=== PATIENT | female | born 1960 | race Caucasian/White ===

== ENCOUNTER 2020-02-10 15:31 | Emergency (ER) | payer OTHER, SELFPAY ==
--- NOTE | ~2020-02-10 | XR_ITS ---
EXAMINATION: XR ankle RT min 3V INDICATION: Right ankle pain, initial encounter TECHNIQUE: Four views of the right ankle are obtained. COMPARISON: None available FINDINGS: There is an acute, traumatic, closed, comminuted fracture of the distal fibula above the le jose of the tibial plafond and. Soft tissue swelling surrounds the fracture. No additional acute osseo us abnormality is evident. IMPRESSION: 1. Comminuted fracture of the distal fibula. Reviewed, dictated and finalized at location A.
[2020-02-10 15:42] VITALS: BP 168/100; PULSE 87; RESP 16; O2SAT 99
--- NOTE | 2020-02-10 15:59 | ED.LOWEXIN ---
HPI - Extremity Injury (Lower) General Chief Complaint: Extremity Injury, Lower Stated Complaint: ankle pain Time Seen by Provider: 02/10/20 15:59 Source: patient Mode of arrival: ambulatory Limitations: no limitations History of Present Illness HPI Narrative: 5-year-old woman comes in today complaining of right ankle pain that started after she tripped over her dog about 90 minutes prior to presentation. She denies any numbness or tingling. She denies foot pain or prior ankle injury. She has mild pain of her left ankle but thinks it was just sprained. complaint: ankle injury Injury: Bilateral: ankle Type of Injury: inversion Place: home Severity: moderate Relieving factors: rest Exacerbating factors: weight bearing, movement and palpation Context: other ( Tripped) Associated symptoms: swelling and unable to bear weight Related Data Home Medications Medication Instructions Recorded Confirmed buspirone 10 mg tablet 10 mg PO BID 09/12/19 02/10/20 esomeprazole magnesium 40 mg 40 mg PO DAILY 09/12/19 02/10/20 capsule,delayed release hydroxyzine HCl 25 mg tablet 25 mg PO Q6H PRN tablet 09/12/19 02/10/20 metoprolol succinate 25 mg 25 mg PO DAILY 09/12/19 02/10/20 tablet,extended release 24 hr Allergies Allergy/AdvReac Type Severity Reaction Status Date / Time No Known Allergies Allergy Unverified 07/11/19 08:01 Review of Systems Constitutional: Constitutional: Denies chills and Denies fever(s) Eyes: Eyes: Denies change in vision and Denies photophobia ENT: Denies dysphagia, Denies nasal congestion and Denies sore throat Cardiovascular: Cardiovascular: Denies chest pain and Denies radiating jaw, neck or arm pain Respiratory: Respiratory: Denies cough, Denies dyspnea and Denies wheezing Gastrointestinal: Gastrointestinal: Denies abdominal pain, Denies nausea and Denies vomiting Neurologic: Denies vertigo, Denies dizziness and Denies syncope Psychiatric: Psychiatric: Denies anxiety and Denies depression Hematologic/Lymphatic: Hematologic/Lymphatic: Denies easy bleeding and Denies easy bruising Allergic/Immunologic: Allergic/Immunologic: Denies lip swelling and Denies wheezing PMFSH Past Medical History Medical History Essential hypertension MARIA LUZ (generalized anxiety disorder) GERD without esophagitis HLD (hyperlipidemia) Vitamin B12 deficiency Vitamin D deficiency Surgical History Surgical History H/O dilation and curettage (~2016) Social History Social History Smoking status: Never smoker Alcohol intake: current Substance use: never Additional occupation/education comments: [employer] Gender identity (if verbalized by the patient): Female Spiritual care concerns: No (She reports she is Methodist) Exam Const: General: alert Orientation/consciousness: patient oriented x3 Limitations: no limitations Other: [id number] acute distress. HENMT: Head: normal to inspection Mouth: Yes lip normal and Yes moist mucous membranes Eyes: Conjunctivae: conjunctivae normal Pupils: Equal, round and reactive pupils present EOM: EOMs intact bilaterally Resp: Effort & Inspection: normal respiratory effort and not labored Auscultation: clear to auscultation bilaterally, no rales, no rhonchi and no wheezes Cardio: Rate: regular rate Rhythm: regular rhythm Heart sounds: no murmurs Skin: General skin exam: normal color, no jaundice and no pallor Rashes: no rashes Neuro: General: patient oriented x3, moves all extremities, no focal motor deficits and CN's II-XI intact bilaterally Extrem: General: normal to inspection and no clubbing, cyanosis or edema Other: Ecchymoses tenderness along the distal right fibula. There is mild tenderness over the deltoid ligament medially on the right. There is no tenderness
--- NOTE | 2020-02-10 16:12 | PC.NURSE ---
CALL PLACED TO DR BENSON FOR ORTHO CONSULT
[2020-02-10 17:20] VITALS: RESP 17
== END 2020-02-10 17:20 | disposition home or self-care (01) ==
PROVIDERS: Emergency Provider Emergency Medicine; PCP Family Medicine
DX: S82.451A Displaced comminuted fracture of shaft of right fibula, initial encounter for closed fracture (principal); W01.0XXA Fall on same level from slipping, tripping and stumbling without subsequent striking against object, initial encounter
CPT/HCPCS: 29515; 73610; 99283; 99284

== ENCOUNTER 2020-02-17 00:39 | Day surgery (SDC) | payer OTHER, SELFPAY ==
[2020-02-16 12:04] VITALS: BMI 27.6
[2020-02-17] VITALS (8 sets, daily range): BP systolic 116–141; BP diastolic 67–84; PULSE 65–95; RESP 10–18; TEMP 36.3–36.9; O2SAT 98–100
--- NOTE | ~2020-02-17 | XR_ITS ---
XR surgery orthopedic 02/17/2020 11:36 Indication: Intraoperative fixation right ankle fracture Procedure: 3 fluoroscopic images of the right ankle. 4 seconds of fluoroscopy. Comparison: 02/14/2020 Findings: Interval reduction of comminuted distal right fibular fracture with sideplate and screws in near-anatomic alignment post reduction. There are stable appearing mildly displaced fragments dumper ior to the fibula seen on the lateral view. Impression: 1: Near-anatomic alignment of distal fibular fracture status post reduction with sideplate and screws . Reviewed, dictated and finalized at location A. Impression: 1: Near-anatomic alignment of distal fibular fracture status post reduction wit h sideplate and screws.
--- NOTE | 2020-02-17 06:00 | ECG_ITS ---
Measurements Intervals [place] Rate: 86 P: 66 MD: 187 QRS: 18 QRSD: 82 T: 30 QT: 357 QTc: 427 Interpretive Statements SINUS RHYTHM POSSIBLE LEFT ATRIAL ENLARGEMENT BASELINE ARTIFACT- I, II, III, AVR, AVL, AVF BORDERLINE ECG Electronically Signed On 02-17-2020 8:19:23 CDT by Gerardo Foote D.O.
[2020-02-17] MEDS: LACTATED RINGERS 1,000 ML 30 ML IV CONT (07:55)
--- NOTE | 2020-02-17 08:22 | WPDANESEPPF ---
Anes - Initial Pre Proc Eval Procedure: Operation Date: 02/17/20 09:30 Proposed Procedures p Open Reduction Internal Fixation Right Ankle - Marcos Lopez MD Date/Time: 02/17/20 08:22 Surgeon: Marcos Lopez MD Pre Op Diagnosis: displaced bimalleolar fx right ankle Patient Data Age: 59 Gender: F Height: 1.63 m Weight: 73.5 kg Allergies Allergy/AdvReac Type Severity Reaction Status Date / Time No Known Allergies Allergy Verified 02/17/20 08:00 Home Medications Medication Instructions Recorded Confirmed Type buspirone 10 mg tablet 10 mg PO BID 09/12/19 02/17/20 History esomeprazole magnesium 40 mg 40 mg PO DAILY 09/12/19 02/17/20 History capsule,delayed release metoprolol succinate 25 mg 25 mg PO DAILY 09/12/19 02/16/20 History tablet,extended release 24 hr amlodipine 10 mg tablet 10 mg PO DAILY #90 tablet 01/09/20 02/17/20 Rx simvastatin 20 mg tablet 20 mg PO DAILY #90 tablet 01/09/20 02/16/20 Rx crutch #2 each 02/10/20 Rx hydrocodone-acetaminophen 0.5 - 1 tablet PO Q6H PRN #20 02/10/20 02/17/20 Rx tablet aspirin 81 mg chewable tablet 81 mg PO DAILY 02/15/20 02/17/20 History cholecalciferol (vitamin D3) 5,000 tablet PO DAILY 02/15/20 02/17/20 History clorazepate dipotassium 7.5 mg 7.5 mg PO BID PRN 02/15/20 02/17/20 History tablet cran-C-B.coag-FOS-L.acid-L.rha 1 tablet PO DAILY 02/15/20 02/17/20 History mecobalamin (vitamin B12) 5,000 tablet PO DAILY 02/15/20 02/16/20 History metoprolol succinate 50 mg 50 mg PO DAILY 02/15/20 02/16/20 History tablet,extended release 24 hr omega-3 fatty acids 1 tablet PO DAILY 02/15/20 02/16/20 History Patient hx anesthesia problems: none Family hx anesthesia problems: none PMFSH Past Medical History Medical History (Updated 02/17/20 @ 08:24 by Seun Tejeda MD) Ankle fracture, bimalleolar, closed Anxiety Depression Essential hypertension MARIA LUZ (generalized anxiety disorder) GERD without esophagitis HLD (hyperlipidemia) Overweight (BMI 25.0-29.9) Seasonal allergies Vitamin B12 deficiency Vitamin D deficiency Surgical History Surgical History H/O dilation and curettage (~2016) Family History Family History (Updated 02/15/20 @ 08:41 by Judith Barr, RT(R)) Father Carcinoma of colon Mother , MVA No problems noted. 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 [employer] Gender identity (if verbalized by the patient): Female Spiritual care concerns: No (She reports she is Religion) Anes - Eval Final PreProcedure Day of Procedure 02/17/20 08:22 Patient weight: overweight Heart: regular rate and rhythm Lungs: clear to auscultation and normal air movement Airway: Mallampati scale class II Neurological: alert and oriented Last oral intake: >/= 8 hours ASA classification: III Emergent: no Anesthetic plan: proceed Anesthesia type and monitoring: general LMA Informed Consent: The patient's anesthetic plan and its attendant risks and benefits were discussed with the patient/family/POA. Questions were solicited and answers provided to the satisfaction of the patient/family/POA.
--- NOTE | 2020-02-17 08:40 | WPDHPUPDATE1 ---
History and Physical Update Update Date/Time: 02/17/20 08:40 History and Physical has been reviewed, including an updated exam of the patient. There are NO changes in the patient's condition. Risks, benefits, and alternatives have been discussed and questions answered. Patient agrees to proceed with procedure.
--- NOTE | 2020-02-17 08:53 | SUR.PREOP ---
RIGHT LOWER LEG BOOT REMOVED PER DR. HOOD REQUEST.
[2020-02-17] MEDS: IBUPROFEN IV 800 MG/200 ML 800 MG/200 ML BAG 400 MG IVPB (09:10)
[2020-02-17] MEDS: ceFAZolin 2 GM/D5W 50 ML 2 GM/50 ML BAG IVPB (10:58)
--- NOTE | 2020-02-17 12:13 | PM.PROC ---
Procedure Note - Detailed Date of procedure: 02/17/20 Pre-op diagnosis: displaced bimalleolar fx right ankle Post-op diagnosis: same Procedure performed: ORIF RT ankle fx Description of procedure: Operative indications: Patient is a 59year-old woman who sustained an injury to the right ankle. Radiographs show distal fibular fracture with displacement. Widening of the ankle mortise noted. Patient presents for operative treatment. Full discussion of the risks, benefits and alternatives of surgery was had with the patient. Questions answered. Patient verbalizes understanding and wishes to proceed. What was done: After informed consent, the operative extremity was marked in the preoperative holding area. Patient received intravenous antibiotics. Patient was then taken to the operating room and underwent general anesthesia by the anesthesia team. They were positioned supine on the operating room table. A time-out was performed confirming the patient, site of the surgery, operative plan. Right Lower extremity then prepped and draped in the usual sterile surgical fashion using ChloraPrep skin solution. Foot and ankle exsanguinated and a thigh tourniquet inflated to 250 mmHg. Longitudinal incision made over the lateral ankle distal fibula with a 15 blade knife. Hemostasis controlled with electrocautery. Full-thickness soft tissue flaps developed and the fascia was incised in line with the skin incision. Fracture identified and cleared with a dental pick, irrigation and rongeur. Fracture reduced and held with bone-holding clamp. Image intensification confirmed reduction of the fracture and the ankle mortise. Fixation achieved with a 3.5 millimeter fully-threaded cortical screw placed in lag technique across the fracture. Neutralization with a lateral 7 hole plate with 4.0mm unicortical screws distal to fracture and 3.5mm bicortical screws proximal to the fracture. Good alignment and stability of the fracture noted. Image intensification used to confirm reduction of the fracture and placement of the hardware. Stress of the ankle performed with good stability of the ankle mortise in all directions. Wound thoroughly irrigated with antibiotic solution. Fascia repaired with 00 Vicryl interrupted suture. Subcutaneous tissue repaired with 000 Monocryl interrupted suture and 0000 nylon running suture. Sterile dressings applied followed by splint. Patient awoken from anesthesia, extubated and taken to the recovery room in stable condition. All sponge, needle and instrument counts correct at the end of the case. Palpable dorsalis pedis pulse noted prior to dressing. Implants: Biomet titanium 1/3 tubular plate, 7 wound, 3- 4.0 mm screws, 3- 3.5 mm screws and 1- 3.5 mm lag screw. Anesthesia: GLMA Surgeon: Marcos Lopez MD Certified Physical Therapist Assistant: dental hygiene administrative assistant Estimated blood loss (mL): 10 Tourniquet time (min): 60 Drains: No Packing: No Pathology: none sent Complications: None Condition: stable Disposition: PACU
--- NOTE | 2020-02-21 08:37 | PM.IMHP ---
H&P: HPI History of Present Illness Chief complaint: displaced bimalleolar fx right ankle Narrative: Olga Baker is a 59 year old female [facility] Past Medical History Medical History (Updated 02/17/20 @ 08:24 by Seun Tejeda MD) Ankle fracture, bimalleolar, closed Anxiety Depression Essential hypertension MARIA LUZ (generalized anxiety disorder) GERD without esophagitis HLD (hyperlipidemia) Overweight (BMI 25.0-29.9) Seasonal allergies Vitamin B12 deficiency Vitamin D deficiency Surgical History Surgical History H/O dilation and curettage (~2015) Family History Family History (Updated 02/15/20 @ 08:41 by Judith Barr, RT(R)) Father Carcinoma of colon Mother , MVA No problems noted. 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[employer] Gender identity (if verbalized by the patient): Female Spiritual care concerns: No (She reports she is Taoism) Meds Home Medications and Allergies Home Medications Medication Instructions Recorded Confirmed Type buspirone 10 mg tablet 10 mg PO BID 09/12/19 02/17/20 History esomeprazole magnesium 40 mg 40 mg PO DAILY 09/12/19 02/17/20 History capsule,delayed release metoprolol succinate 25 mg 25 mg PO DAILY 09/12/19 02/16/20 History tablet,extended release 24 hr amlodipine 10 mg tablet 10 mg PO DAILY #90 tablet 01/09/20 02/17/20 Rx simvastatin 20 mg tablet 20 mg PO DAILY #90 tablet 01/09/20 02/16/20 Rx crutch #2 each 02/10/20 Rx aspirin 81 mg chewable tablet 81 mg PO DAILY 02/15/20 02/17/20 History cholecalciferol (vitamin D3) 5,000 tablet PO DAILY 02/15/20 02/17/20 History clorazepate dipotassium 7.5 mg 7.5 mg PO BID PRN 02/15/20 02/17/20 History tablet cran-C-B.coag-FOS-L.acid-L.rha 1 tablet PO DAILY 02/15/20 02/17/20 History mecobalamin (vitamin B12) 5,000 tablet PO DAILY 02/15/20 02/16/20 History metoprolol succinate 50 mg 50 mg PO DAILY 02/15/20 02/16/20 History tablet,extended release 24 hr omega-3 fatty acids 1 tablet PO DAILY 02/15/20 02/16/20 History hydrocodone-acetaminophen 0.5 - 1 tablet PO Q6H PRN #20 02/17/20 Rx tablet ondansetron HCl [Zofran] 8 mg PO Q8H PRN #10 tablet 02/17/20 Rx Allergies Allergy/AdvReac Type Severity Reaction Status Date / Time No Known Allergies Allergy Verified 02/17/20 08:00 Assessment and Plan Assessment and plan (1) Ankle fracture, bimalleolar, closed: Qualifiers: Encounter type: initial encounter Laterality: right Qualified Code(s): S82.841A - Displaced bimalleolar fracture of right lower leg, initial encounter for closed fracture Code(s): S82.843A - Displaced bimalleolar fracture of unspecified lower leg, initial encounter for closed fracture Status: Acute Assessment and Plan: See history and physical from office visit February 13
== END 2020-02-17 14:11 | disposition home or self-care (01) ==
PROVIDERS: PCP Family Medicine; Visit Provider Orthopaedic Surgery
PROC: (CPT 27814; principal; 2020-02-17 09:30)
DX: S82.841A Displaced bimalleolar fracture of right lower leg, initial encounter for closed fracture (principal); I10 Essential (primary) hypertension; E78.5 Hyperlipidemia, unspecified; E55.9 Vitamin D deficiency, unspecified; E53.8 Deficiency of other specified B group vitamins; K21.9 Gastro-esophageal reflux disease without esophagitis; F41.1 Generalized anxiety disorder; F32.9 Major depressive disorder, single episode, unspecified; Z79.82 Long term (current) use of aspirin; X58.XXXA Exposure to other specified factors, initial encounter
CPT/HCPCS: 27814; 93005; A9270; C1713; J0690; J1100; J1741; J1885; J2250; J2405; J2704; J3010; J7120

== ENCOUNTER 2020-04-13 09:54 | Outpatient (RCR) | payer OTHER, SELFPAY ==
--- NOTE | 2020-04-13 11:25 | PTOPEVAL ---
Thank you for referring Olga Baker to [facility]. Please review, sign, date and return this plan of care DEB. I agree with and certify that the following plan of care is medically necessary. Referring Physician Date Admitting Provider: Attending Provider: Marcos Lopez MD Referring Provider: *PT Outpatient Evaluation Start: 04/13/20 09:54 Freq: Status: Active Protocol: Document 04/13/20 09:55 KEMI (Rec: 04/13/20 10:34 KEMI [email or web address]) Therapy Assessment Status Assessment Status Assessment Status Evaluation Outpatient Past Medical History Neurological History Hx Neurological Disorders No Significant History Cardiovascular History Hx Hypercholesterolemia Yes Hx Hypertension Yes Respiratory History Hx Respiratory Disorders No Significant History Gastrointestinal History Hx Gastroesophageal Reflux Disease Yes Hx Other Gastrointestinal Disorders Yes: COLONOSCOPY 2019 - NEGITIVE Genitourinary History Hx Genitourinary Disorders No Significant History Musculoskeletal History Hx Fractures Yes: CURRENTLY RT ANKLE FX Hematological History Hx Hematological Disorders No Significant History Endocrine History Hx Endocrine Disorders No Significant History HEENT History Hx Other HEENT Disorders Yes: GLASSES/CONTACTS Integumentary History Hx Shingles Yes: 2018 SCALP Reproductive History Hx Post Menopausal Yes Psychosocial History Hx Anxiety Yes Hx Depression Yes Pain History History of Any Previous or Ongoing No Significant History Instance of Pain Anesthesia History Hx Anesthesia Reactions No Significant History Evaluation Information Problem Diagnosis right ankle fx with ORIF Onset 02/17/20 Subjective Information Pt. reports that she fx her Query Text:As Reported By Patient/ ankle on good Thursday. she Family reports that she rolled her ankle while walking down her steps. She states that she underwent surgery on 02/17/20. Pt. was has been NWB since surgery. She reports she has been doing AROM exercise. She reports being nervous about putting any weight on the leg. Pt. reports that her goal is to be able to walk normally w /o an AD. 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
== END 2020-05-14 16:41 | disposition home or self-care (01) ==
LOC: CHSPT 09:54
PROVIDERS: Visit Provider Orthopaedic Surgery
DX: Z98.890 Other specified postprocedural states (principal)
CPT/HCPCS: 97016; 97110; 97161; 97530

== ENCOUNTER 2020-06-04 08:18 | Outpatient (CLI) | payer OTHER, SELFPAY ==
--- NOTE | ~2020-06-04 | XR_ITS ---
XR ankle RT min 3V DATE: 06/04/2020 08:44 INDICATION: Swelling TECHNIQUE: 3 views COMPARISON: 05/09/2020 right ankle FINDINGS: There is a plate and screws along the distal fibular shaft and lateral malleolus. No new fracture or dislocation of the ankle or disruption of the ankle mortise is evident. There is n o change in position or alignment since 05/09/2020. There is generalized soft tissue swelling of the right ankle. IMPRESSION: Generalized soft tissue swelling Status post ORIF distal fibular fracture Reviewed, dictated and finalized at location B.
== END 2020-06-04 08:19 | disposition home or self-care (01) ==
PROVIDERS: PCP Nurse Practitioner Family; Visit Provider Orthopaedic Surgery
DX: Z47.89 Encounter for other orthopedic aftercare (principal)
CPT/HCPCS: 73610

== ENCOUNTER 2020-07-16 08:08 | Outpatient (CLI) | payer OTHER, SELFPAY ==
--- NOTE | ~2020-07-16 | XR_ITS ---
XR ankle RT min 3V 07/16/2020 08:26 Indication: Right ankle fracture. Orthopedic follow-up. Procedure: 3 views right ankle Comparison: Comparison to multiple prior studies sequentially, with oldest reviewed study dated 03/14. Findings: There is a fibular side plate and screws transfixing the distal fibula. Ankle mortise intac t. Stable alignment. No acute fracture or traumatic malalignment. Mild lateral soft tissue swelling. No discrete fracture line is evident. Impression: 1: Stable alignment of healed distal fibula fracture. No acute fracture or subluxation status post in ternal fixation. Reviewed, dictated and finalized at location B. Impression: 1: Stable alignment of healed distal fibula fracture. No acute fracture or subl uxation status post internal fixation.
== END 2020-07-16 08:09 | disposition home or self-care (01) ==
LOC: CHSIMG 08:10
PROVIDERS: PCP Nurse Practitioner Family; Visit Provider Orthopaedic Surgery
DX: Z47.89 Encounter for other orthopedic aftercare (principal)
CPT/HCPCS: 73610

== ENCOUNTER 2021-06-28 12:16 | Outpatient (CLI) | payer OTHER, SELFPAY ==
[2021-06-28 12:25] LABS: SARS-CoV-2 Ag Positive (Negative)
== END 2021-06-28 12:17 | disposition home or self-care (01) ==
LOC: CHSLAB 12:18
PROVIDERS: PCP Nurse Practitioner Family; Visit Provider Physician Assistant
DX: U07.1 COVID-19 (principal)
CPT/HCPCS: 87426; C9803

== ENCOUNTER 2021-07-06 12:41 | Emergency (ER) | payer OTHER, SELFPAY ==
--- NOTE | ~2021-07-06 | XR_ITS ---
EXAMINATION: XR chest 2V DATE: 07/06/2021 13:43 INDICATION: Positive. Cough. TECHNIQUE: PA and lateral views of the chest were obtained. COMPARISON: None FINDINGS: Thin linear opacity at the right lung base projecting over the right hemidiaphragm consistent with di scoid atelectasis/scarring. A couple more subtle opacities at the lateral left lower lung zone which could represent additional atelectasis or less likely pneumonia. No pulmonary edema, pleural effusion or pneumothorax. The cardiomediastinal silhouette is normal. Moderate thoracic, lower cervical and u pper lumbar spondylosis. IMPRESSION: 1. Linear discoid atelectasis at the right lung base and a couple small more subtle opacities at the left lower lung zone which could represent additional atelectasis or less likely pneumonia. Reviewed, dictated and finalized at location A. IMPRESSION: 1. Linear discoid atelectasis at the right lung base and a couple small more dennis btle opacities at the left lower lung zone which could represent additional ate lectasis or less likely pneumonia.
[2021-07-06 12:50] VITALS: BP 124/88; PULSE 125; RESP 16; TEMP 37; O2SAT 97
[2021-07-06 13:40] LABS: Basophils Percent Auto 0.4 % (0.2-1.2); Eosinophils Percent Auto 0.1 % (0-4.4); Hematocrit 46.8 % (37.0-47.0); Hemoglobin 16.2 g/dL (12.0-15.0); Immature Granulocyte Absolute 0.03 K/mm3 (0.00-0.031); Immature Granulocyte Percent A 0.4 % (0-0.5); Lymphocytes Absolute Auto 1.32 K/mm3 (0.9-3.2); Lymphocytes Percent Auto 17.6 % (18.3-44.2); Mean Corpuscular HGB Conc 34.6 g/dl (32-36); Mean Corpuscular Hemoglobin 31.4 pg (26-34); Mean Corpuscular Volume 90.7 fl (80-100); Mean Platelet Volume 11.3 fl (7.4-10.4); Monocytes Absolute Auto 0.6 K/mm3 (0.1-0.6); Monocytes Percent Auto 8.1 % (2.6-8.5); Neutrophils Absolute Auto 5.5 K/mm3 (1.3-6.7); Neutrophils Percent Auto 73.4 % (45.5-73.1); Platelet Count Result 277 k/mm3 (150-375); Red Blood Count 5.16 M/mm3 (4.2-5.4); Red Cell Distribution Width 12.5 % (11.5-14.5); White Blood Count 7.5 K/mm3 (4.5-10.0)
[2021-07-06 14:07] LABS: Alanine Aminotransferase 27 U/L (4-35); Albumin Level 4.6 g/dL (3.5-5.1); Alkaline Phosphatase 68 U/L (38-126); Anion Gap 12 mmol/L (8-16); Aspartate Amino Transferase 40 U/L (14-36); Bilirubin,Total 0.6 mg/dL (0.2-1.3); Blood Urea Nitrogen 10 mg/dL (7-17); Calcium 9.5 mg/dL (8.4-10.2); Carbon Dioxide 27 mmol/L (22-30); Chloride 94 mmol/L (98-107); Estimated CRCL calculation 82 ml/min; Estimated Glomerular Filt Rate > 60; Glucose 147 mg/dL (65-110); Lipase 732 U/L (23-300); Potassium 3.1 mmol/L (3.4-5.0); Sodium 133 mmol/L (137-145)
[2021-07-06 15:07] VITALS: BP 126/86; PULSE 104; RESP 18; O2SAT 99
[2021-07-06] MEDS: ONDANSETRON INJ 4 MG/2 ML VIAL IV PUSH (15:37)
[2021-07-06] MEDS: SODIUM CHLORIDE 0.9% IV 1,000 ML 999 ML IV CONT (15:37)
[2021-07-06 15:44] LABS: Add Urine Microscopic? YES; Appearance Urine Cloudy (Clear); Bilirubin Urine Negative (Negative); Blood Urine 1+ (Negative); Color Urine Amber (Yellow); Glucose Urine UA Negative (Negative); Ketones Urine Trace mg/dL (Negative); Leukocyte Esterase Ur Trace LEU/UL (Negative); Mucus Urine Rare /lpf; Nitrate Urine Negative (Negative); Protein Urine 2+ mg/dL (Negative); RBC Urine 0-2 /hpf (0-2); Specific Grav Ur 1.023 (1.001-1.035); Squamous Epithelial Cell Urine Many /hpf (Few); Urobilinogen Urine Negative mg/dL (<2.0)
[2021-07-06 16:05] VITALS: BP 135/85; PULSE 90; RESP 23; O2SAT 100
[2021-07-06 17:10] VITALS: BP 144/86; PULSE 83; RESP 26; O2SAT 98
--- NOTE | 2021-07-06 17:29 | ED.GENADULT ---
HPI - General Adult General Chief complaint: Upper Respiratory Infection Stated complaint: covid symptoms Time Seen by Provider: 07/06/21 14:42 History of Present Illness HPI narrative: Patient is a 60-year-old female who presents to the ER with 11 days of Covid symptoms and being Covid positive for 8 days. Patient reports she has recently been having diarrhea with some nausea but no vomiting. She has had poor oral intake. She has persistent nausea today but is feeling improved compared to last couple days. Fevers have began to wane. No chest pain or chest pressure. Still has dry cough. Related Data Home Medications Medication Instructions Recorded Confirmed aspirin 81 mg chewable tablet 81 mg PO DAILY 02/15/20 07/16/20 cholecalciferol (vitamin D3) 5,000 tablet PO DAILY 02/15/20 07/16/20 clorazepate dipotassium 7.5 mg 7.5 mg PO BID PRN 02/15/20 07/16/20 tablet cran-C-B.coag-FOS-L.acid-L.rha 1 tablet PO DAILY 02/15/20 07/16/20 [Probiotic Plus and Cranberry] mecobalamin (vitamin B12) 5,000 tablet PO DAILY 02/15/20 07/16/20 omega-3 fatty acids [Fish Oil] 1 tablet PO DAILY 02/15/20 07/16/20 esomeprazole magnesium 40 mg 40 mg PO DAILY 05/21/20 07/16/20 capsule,delayed release furosemide 20 mg tablet 20 mg PO QAM 07/16/20 07/16/20 Allergies Allergy/AdvReac Type Severity Reaction Status Date / Time No Known Allergies Allergy Verified 07/06/21 14:51 Review of Systems Review of Systems: All systems reviewed & are unremarkable except as noted in HPI and below Constitutional: Constitutional: Denies chills, Reports fatigue and Denies fever(s) ENT: Denies nasal congestion and Denies sore throat Cardiovascular: Cardiovascular: Denies chest pain, Denies rapid heart rate and Denies radiating jaw, neck or arm pain Respiratory: Respiratory: Reports cough, Denies dyspnea and Denies wheezing Gastrointestinal: Gastrointestinal: Denies abdominal pain, Reports diarrhea, Reports nausea and Reports vomiting PMFSH Past Medical History Medical History (Updated 07/06/21 @ 17:36 by Jayme Thakkar MD) Ankle fracture, bimalleolar, closed Anxiety Depression Essential hypertension MARIA LUZ (generalized anxiety disorder) GERD without esophagitis HLD (hyperlipidemia) Overweight (BMI 25.0-29.9) Seasonal allergies Vitamin B12 deficiency Vitamin D deficiency Surgical History Surgical History H/O dilation and curettage (~2016) Family History Family History Father Carcinoma of colon Mother , MVA No problems noted. 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 HEAD: Normocephalic, atraumatic. ENT: Nares clear, no rhinorrhea or epistaxis. Mucous membranes moist. CHEST: Clear to auscultation. No respiratory distress. HEART: Tachycardic irregular. Normal peripheral pulses. ABDOMEN: Soft, nontender, nondistended. EXTREMITIES: Normal range of motion. No edema. SKIN: Warm, dry, no rash. NEURO: Alert and oriented x3. PSYCH: Normal mood and affect. Course Course Emergency Course: Patient resting comfortably. Hydrated. Feels improved with antiemetics. Discharge with home Zofran. Vital Signs Vital signs: Vital Signs Temperature 98.6 F 07/06/21 12:50 Pulse Rate 125 H 07/06/21 12:50 Respiratory Rate 16 07/06/21 12:50 Blood Pressure 124/88 07/06/21 12:50 Pulse Oximetry 97 07/06/21 12:50 Temperature 98.6
[2021-07-06 17:42] VITALS: BP 144/86; PULSE 84; RESP 24; O2SAT 98
== END 2021-07-06 17:44 | disposition home or self-care (01) ==
PROVIDERS: Emergency Provider Emergency Medicine; PCP Nurse Practitioner Family
DX: U07.1 COVID-19 (principal); R11.2 Nausea with vomiting, unspecified; I10 Essential (primary) hypertension; K21.9 Gastro-esophageal reflux disease without esophagitis; E78.5 Hyperlipidemia, unspecified; E66.3 Overweight; Z68.27 Body mass index [BMI] 27.0-27.9, adult; E53.8 Deficiency of other specified B group vitamins; E55.9 Vitamin D deficiency, unspecified; Z79.82 Long term (current) use of aspirin; R91.8 Other nonspecific abnormal finding of lung field
CPT/HCPCS: 36415; 71046; 80053; 81001; 83690; 85025; 96361; 96374; 99284; J2405; J7030

== ENCOUNTER 2025-01-29 20:26 | Observation (INO) | payer BC, SELFPAY ==
--- NOTE | ~2025-01-29 | CT_ITS ---
EXAMINATION: CT abdomen pelvis wo con DATE: 01/29/2025 20:53 INDICATION: LEFT FLANK PAIN X 8 HRS. TECHNIQUE: Computed tomography (CT) of the abdomen and pelvis was performed without intravenous contr ast. Automated exposure control and iterative reconstruction technique were employed. The dose-length product was 668.39 mGy-cm. COMPARISON: None. FINDINGS: Lower thorax: Cardiomegaly. Mild bibasilar scarring. Liver: Normal. Biliary/Gallbladder: Gallbladder is normal. No bile duct dilation. Pancreas: No mass or duct dilation. Spleen: Normal. Adrenals:No mass. Kidneys: No suspicious mass, obstructing stone, or hydronephrosis. Simple right lower pole cyst. GI tract: No small or large bowel dilation. Normal appendix. Diverticulosis without diverticulitis. Mesentery/Peritoneum: No ascites, mass, or free air. Retroperitoneum: No mass. Atherosclerotic calcifications of intra-abdominal arterial vessels. Pelvis: Pelvic organs are within normal limits. Soft Tissues: Soft tissues and body wall unremarkable. Bones: No acute osseous finding. IMPRESSION: No acute abdominopelvic process detected. Reviewed, dictated and finalized at location K.
[2025-01-29 20:26] VITALS: BP 151/87; PULSE 85; RESP 18; TEMP 36.4; O2SAT 99
--- NOTE | 2025-01-29 20:29 | ED.ABDPAIN ---
HPI - Abdominal Pain General Chief Complaint: Back Pain/Injury Stated Complaint: flank pain Time Seen by Provider: 01/29/25 20:29 Source: patient Mode of arrival: ambulatory Limitations: no limitations History of Present Illness HPI narrative: patient is a 64-year-old female with left flank pain for the past day. No history of kidney stones. She did have radiation to the groin on the left but that has resolved. MD elicited complaint: flank pain ( Left back and flank) Pertinent past history: other ( hypertension, GERD, hyperlipidemia, anxiety) Onset (ago): day(s) ( 1) Pain Consistency: intermittent Location: L flank, groin ( left) and other ( left mid back) Severity: moderate Pain scale (0-10): 5 Quality: stabbing and sharp Radiation: other ( left groin) Migration to: no migration Exacerbating factors: nothing Relieving factors: nothing Context: confirms other ( patient having left flank and left back pain which occasionally radiated to the groin on the left for the past day) Associated symptoms: denies other symptoms Treatments prior to arrival: NSAIDs Related Data Home Medications ?Medication ?Instructions ?Recorded ?Confirmed ?Last Taken ?Type aspirin 81 mg chewable tablet 81 mg PO DAILY 02/15/20 07/16/20 Unknown History cholecalciferol (vitamin D3) 5,000 tablet PO DAILY 02/15/20 07/16/20 Unknown History clorazepate dipotassium 7.5 mg 7.5 mg PO BID PRN Anxiety 02/15/20 07/16/20 Unknown History tablet cran-C-B.coag-FOS-L.acid-L.rha 1 tablet PO DAILY 02/15/20 07/16/20 Unknown History [Probiotic Plus and Cranberry] mecobalamin (vitamin B12) 5,000 tablet PO DAILY 02/15/20 07/16/20 Unknown History omega-3 fatty acids [Fish Oil] 1 tablet PO DAILY 02/15/20 07/16/20 Unknown History esomeprazole magnesium 40 mg 40 mg PO DAILY 05/21/20 07/16/20 Unknown History capsule,delayed release furosemide 20 mg tablet 20 mg PO QAM 07/16/20 07/16/20 Unknown History atorvastatin 80 mg tablet 80 mg PO DAILY 01/29/25 01/29/25 Unknown History Allergies Allergy/AdvReac Type Severity Reaction Status Date / Time No Known Allergies Allergy Verified 01/29/25 20:31 Review of Systems Review of Systems: All systems reviewed & are unremarkable except as noted in HPI and below Constitutional: Constitutional: Reports no additional constitutional complaints Eyes: Eyes: Reports no additional eye complaints ENT: Reports system reviewed and no additional complaints, except as documented Cardiovascular: Cardiovascular: Reports no additional cardiovascular complaints Respiratory: Respiratory: Reports no additional respiratory complaints Gastrointestinal: Gastrointestinal: Reports no additional gastrointestinal complaints Genitourinary: Genitourinary: Reports no additional female genitourinary complaints Musculoskeletal: Musculoskeletal: Reports no additional musculoskeletal complaints Integumentary/Breasts: Skin/Breast: Reports system reviewed and no additional complaints, except as docu Neurologic: Reports system reviewed and no additional complaints, except as documented Psychiatric: Psychiatric: Reports no additional psychiatric complaints Endocrine: Endocrine: Reports no additional endocrine complaints Hematologic/Lymphatic: Hematologic/Lymphatic: Reports no additional hematologic/lymphatic complaints Allergic/Immunologic: Allergic/Immunologic: Reports no additional allergic/immunologic complaints PMFSH Past Medical History Medical History (Updated 01/29/25 @ 22:17 by Reagan Parks MD) Overweight (BMI 25.0-29.9) Depression Anxiety Seasonal allergies Ankle fracture, bimalleolar, closed MARIA LUZ (generalized anxiety disorder) Vitamin D deficiency GERD without esophagitis Vitamin B12 deficiency Essential hypertension HLD (hyperlipidemia) Surgical History Surgical History H/O dilation and curettage (~2015) Family History Family History Father Carcinoma of colon Mother , MVA No problems noted. 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 [employer] Gender identity (if verbalized by the patient): Female Spiritual care concerns: No (She reports she is Jain) Exam Const: General: healthy appearing Nutritional Appearance: well nourished Orientation/consciousness: patient oriented x3 Limitations: no limitations HENMT: Head: normal to inspection Ears: external ears normal Face/Nose/Sinus: Normal external nose present Eyes: Conjunctivae: conjunctivae normal Pupils: Equal, round and reactive pupils present EOM: EOMs intact bilaterally Neck: Neck: normal visual inspection Chest: Chest palpation & inspection: normal inspection of the chest Resp: Effort & Inspection: normal respiratory effort and not labored Auscultation: clear to auscultation bilaterally and no crackles Cardio: Rate: regular rate Rhythm: regular rhythm Heart sounds: no murmurs GI: Inspection: non-distended GI Palp: Yes Soft to palpation and No Tenderness to palpation present (GI) Auscultation: normal bowel sounds : General: Yes bladder normal to palpation Back/Spine/Pelvis: Back: no CVA tenderness Skin: General skin exam: normal color Rashes: no rashes Wounds: no wounds Neuro: General: patient oriented x3 Cranial nerves: Yes Nystagmus not present Speech: normal speech Gait exam (Neuro): Normal gait present Extrem: General: normal to inspection Psych: Mental Status: mental status grossly normal Affect: normal affect Attitude: cooperative Course Vital Signs Vital signs: Vital Signs Temperature 36.4 C L 01/29/25 20: Pulse Rate 85 01/29/25 20:26 Respiratory Rate 18 01/29/25 20:26 Blood Pressure 151/87 H 01/29/25 20:26 Pulse Oximetry 99 01/29/25 20:26 Oxygen Delivery Room Air 01/29/25 20:26 Temperature 36.4 C L 01/29/25 20:26 Pulse Rate 85 01/29/25 20:26 Respiratory Rate 18 01/29/25 20:26 Blood Pressure 151/87 H 01/29/25 20:26 Pulse Oximetry 99 01/29/25 20:26 Oxygen Delivery Room Air 01/29/25 20:26 MDM - Abdominal Pain MDM Narrative Medical decision making narrative: patient is a 64-year-old female with left flank pain and back pain and groin pain for the past day. We will do an abdominal pain workup at this time. Workup shows low sodium, low potassium and low chloride. He is on Lasix without potassium. We will put her in the hospital overnight and replace her fluids and electrolytes. For safety we will check an EKG and troponin. Also check a magnesium. Lab Data Attestation: I reviewed the patient's lab results. 01/29/25 21:13 01/29/25 21:13 Labs: Lab Results 01/29/25 01/29/25 Range/Units 20:37 21:13 WBC 7.2 (4.8-10.8) K/mm3 RBC 4.38 (4.20-5.40) M/mm3 Hgb 13.8 (11.7-13.8) g/dL Hct 40.2 (35.0-42.0) % MCV 91.8 (78.0-102.0) fL MCH 31.5 H (27.0-31.0) pg MCHC 34.3 (32-36) g/dL RDW 12.3 (11.6-14.4) % Plt Count 211 (150-420) K/mm3 MPV 9.8 (9.2-11.8) fl Immature Gran % (Auto) 0.3 H (0.0-0.0) % Neut % (Auto) 60.9 (50.0-70.0) % Lymph % (Auto) 29.2 (18.0-42.0) % [place] % (Auto) 7.8 (2.0-11.0) % Eos % (Auto) 1.2 (1.0-6.0) % Baso % (Auto) 0.6 (0.0-1.0) % Lymph # (Auto) 2.11 (1.10-4.50) K/mm3 Trinity # (Auto) 0.56 (0.10-0.90) K/mm3 Eos # (Auto) 0.09 (0.02-0.50) K/mm3 Baso # (Auto) 0.04 (0.00-0.10) K/mm3 Abs Immat Gran (auto) 0.02 H (0.00-0.00) K/mm3 Absolute Neuts (auto) 4.40 (1.70-7.20) K/mm3 Absolute Nucleated RBC 0.00 (0.00-0.00) K/mm3 Nucleated RBC % 0.0 (0-0.0) % PT 10.4 (9.50-12.1) Seconds INR 0.9 APTT 29.1 (23.9-30.70) Sec Sodium 122 L (136-145) mmol/L Potassium 2.6 L (3.5-5.1) mmol/L Chloride 81 L (98-108) mmol/L Carbon Dioxide 30 (21-32) mmol/L Anion Gap 11 (4-12) mmol/L BUN 9 (7-18) mg/dL Creatinine 0.55 (0.55-1.02) mg/dL Estim Creat Clear Calc 88 ml/min Estimated GFR > 60 (59 - ) Glucose 130 H (70-99) mg/dL Calculated Osmolality 254 L (285-295) mOsm/kg Lactic Acid 1.1 (0.4-2.0) mmol/L Calcium 8.8 (8.5-10.1) mg/dL Total Bilirubin 1.2 H (0.00-1.00) mg/dL AST 30 (15-37) U/L ALT 44 (14-59) U/L Alkaline Phosphatase 97 (46-116) U/L Total Protein 8.1 (6.4-8.2) g/dL Albumin 4.3 (3.4-5.0) g/dL Lipase 39 (16-77) U/L Urine Color Light yellow (Yellow) Urine Appearance Clear (Clear) Urine pH 7.5 (5.0-8.0) Ur Specific [place] 1.010 (1.010-1.020) Urine Protein Negative (Negative) Urine Glucose (UA) Negative (Negative) Urine Ketones Trace H (Negative) Ur Blood (Man) Negative (Negative) Urine Nitrate Negative (Negative) Urine Bilirubin Negative (Negative) Urine Urobilinogen 0.2 (0.2-1.0) mg/dL Leukocyte Esterase Rfl Negative (Negative) SUDHA/UL Imaging Data Attestation: I personally reviewed and interpreted this imaging study as follows: Radiologist's impression: ITS Impressions Abdomen/Pelvis CT 01/29/25 21:02 IMPRESSION: No acute abdominopelvic process detected. CT scan of the abdomen and pelvis was negative for acute process ECG Data EKG #1: Attestation: I personally reviewed and interpreted this ECG as follows: ECG completion date: 01/29/25 ECG completion time: 22:05 normal rate, no ectopy, non-specific ST changes, normal QRS, normal QT and NL axis Discharge Plan Discharge Clinical Impression: Hypokalemia, Hypochloremia, Hyponatremia, Cramp in muscle Patient Disposition: Acute Care [facility] Condition: Stable Patient Language: Mongolian Prescriptions: No Action atorvastatin 80 mg tablet 80 mg PO DAILY furosemide 20 mg tablet 20 mg PO QAM clorazepate dipotassium 7.5 mg tablet 7.5 mg PO BID PRN (Reason: Anxiety) Patient Comments: Per home medication list cholecalciferol (vitamin D3) 5,000 tablet PO DAILY mecobalamin (vitamin B12) 5,000 tablet PO DAILY omega-3 fatty acids [Fish Oil] 1 tablet PO DAILY cran-C-B.coag-FOS-L.acid-L.rha [Probiotic Plus and Cranberry] 1 tablet PO DAILY aspirin 81 mg tablet,chewable 81 mg PO DAILY ondansetron 4 mg tablet,disintegrating 4 mg PO Q6H PRN (Reason: nausea and vomiting) Qty: 10 0RF simvastatin 20 mg tablet 20 mg PO DAILY Qty: 90 2RF amlodipine 10 mg tablet 10 mg PO DAILY Qty: 90 2RF esomeprazole magnesium 40 mg capsule,delayed release(DR/EC) 40 mg PO DAILY Rx Instructions: Pt needs apt. for refills metoprolol succinate 25 mg tablet extended release 24 hr 25 mg PO DAILY Qty: 30 0RF Rx Instructions: TAKE ONE TABLET DAILY. PATIENT NEEDS TO COME IN THE OFFICE FOR REFILLS metoprolol succinate 50 mg tablet extended release 24 hr See Rx Instructions .ROUTE .COMPLEX Qty: 90 0RF Dose Instruction: TAKE ONE TABLET BY MOUTH DAILY Rx Instructions: TAKE ONE TABLET BY MOUTH DAILY Follow-up/Referrals: Aron,Juan R Griffin MD [Primary Care Provider] - Time of Disposition: 22:02
--- OUTSIDE RECORDS SUMMARY | 2025-01-29 20:31 | XMS_ITS | Clinical Summary ---
Author Organization [facility] Address [address] [place] [address] Care Team Providers Care Geoscience Professor Name Role Phone Juan R Sharp MD Primary Care Provider [phone] Jeromy Rosales MD Unavailable [phone] Alexis Vasquez MD Unavailable [phone] Allergies No known active allergies Medications metroNIDAZOLE (METROGEL) 0.75 % vaginal gel Insert into the vagina daily 07/27/20 15 Active doxycycline monohydrate (MONODOX) 100 mg capsule 08/04/20 21 Active multivit-min/lilliam foreign fumarate (MULTI VITAMIN ORAL) Take by mouth Active docosahexaenoic acid/epa (FISH OIL ORAL) Take by mouth Active cyanocobalamin (Vitamin B-12) 1,000 mcg sublingual tablet Take 1 tablet (1,000 mcg total) by mouth daily Active cholecalciferol (VITAMIN D-3) 76424 unit capsule Take 1 capsule (10,000 Units total) by mouth daily Active dandelion root 525 mg capsule Take by mouth Active hawthorn 500 mg capsule Take by mouth Active furosemide (LASIX) 20 mg tabletIndication s:Primary hypertension TAKE ONE TABLET BY MOUTH DAILY NEEDED FOR LEG SWELLING 90 tablet 3 06/03/20 24 Active amLODIPine (NORVASC) 10 mg tablet TAKE ONE TABLET BY MOUTH DAILY 90 tablet 3 10/03/[address] (NexIUM) 40 mg capsule TAKE ONE CAPSULE BY MOUTH DAILY 90 capsule 3 10/27/20 24 Active atorvastatin (LIPITOR) 80 mg tablet Take 1 tablet (80 mg total) by mouth daily 90 tablet 3 01/03/20 25 026 Active metoprolol XL (TOPROL-XL) 50 mg extended release tabletIndication s:Primary hypertension Take 1 tablet (50 mg total) by mouth daily 90 tablet 1 01/06/20 25 Active clorazepate (TRANXENE) 7.5 mg tablet TAKE ONE TABLET BY MOUTH TWICE A DAY 60 tablet 01/28/20 25 Active atorvastatin (LIPITOR) 80 mg tablet Take 1 tablet (80 mg total) by mouth daily 90 tablet 3 05/03/20 24 025 Discontinued clorazepate (TRANXENE) 7.5 mg tablet TAKE ONE TABLET BY MOUTH TWICE A DAY 60 tablet 09/26/20 24 025 Discontinued atorvastatin (LIPITOR) 40 mg tablet TAKE ONE TABLET BY MOUTH DAILY 90 tablet 10/03/20 24 025 Discontinued metoprolol XL (TOPROL-XL) 50 mg extended release tabletIndication s:Primary hypertension Take 1 tablet (50 mg total) by mouth daily 100 tablet 1 12/30/19 25 025 Discontinued(Re order) Active Problems Problem Noted Date Diagnosed Date Rosacea 04/24/2022 Assessment & Plan (06/08/2023 4:17 PM CDT): Follows with Dermatology. Dysfunctional uterine bleeding 07/26/2015 Assessment & Plan (06/08/2023 4:02 PM CDT): Polyp removed 2014. Last pap at that time too. Hypertension Assessment & Plan (06/08/2023 4:26 PM CDT): BP stable in office, continuing Amlodipine and Toprol-XL Refills provided. Updated labs ordered. Assessment & Plan (04/27/2022 2:29 PM CDT): Blood pressure is borderline Refilled Toprol Planning on switch to atorvastatin from simvastatin. Will finish up the simvastatin prescription , and then start atorvastatin in July Awaiting labs Assessment & Plan (08/19/2021 8:35 PM CDT): Refilled Toprol 75 mg daily Labs as ordered (may draw today) Will plan for well woman with Chi as soon as next month; otherwise HMV in 6 mos (also with Chi) Hyperlipidemia Assessment & Plan (06/08/2023 4:18 PM CDT): Continues Atorvastatin 40 mg daily, updated labs ordered Assessment & Plan (04/27/2022 2:30 PM CDT): As above GERD (gastroesophageal reflux disease) Encounters Date Type Department Care Team Description 01/05/2025 Telephone [facility] Primary Care at [address] [address] Juan R Sharp MD Medication Request 12/30/2024 Telephone [facility] Primary Care at [address] [address] Buffy Bacon MA from Last 3 Months Immunizations Immunization Administration Dates Next Due Influenza, Unspecified 06/08/2023(Deferr ed: Patient Refused),11/02/2022(Deferred: Patient Refused),11/02/2021(Deferred: Patient Refused),11/02/2020(Deferred: Patient Refused) Tdap 12/04/2016 Surgical History Surgery Date Site/Laterality Comments FOOT SURGERY BREAST LUMPECTOMY Medical History Medical History Date Comments Hyperlipidemia Hypertension GERD (gastroesophageal reflux disease) Rosacea 04/24/2022 Family History Medical History Relation Name Comments Colon cancer Father No Known Problems Mother Relation Name Status Comments Brother 1 Alive Brother 2 Alive Brother 3 Alive Brother 4 Alive Father Mother Social History Tobacco Use Types Packs/Day Years Used Date Smoking Tobacco: Never Passive Smoke Exposure: Never Smokeless Tobacco: Never PHQ-2 Answer Date Recorded PHQ-2 Total Score (If total score is 3 or more points, staff should administer the PHQ-9) 0 05/25/2024 Comments No Sex and Gender Information Value Date Recorded Sex Assigned at Not on file 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 Gender Identity Not on file Sexual Orientation Not on file Obstetrics History Last Filed Vital Signs Vital Sign Reading Time Taken Comments Blood Pressure 146/78 05/25/2024 3:46 PM CDT Pulse 73 05/25/2024 3:46 PM CDT Temperature 36.8 C (98.2 F) 05/25/2024 3:46 PM CDT Respiratory Rate 18 05/25/2024 3:46 PM CDT Oxygen Saturation 98% 05/25/2024 3:46 PM CDT Inhaled Oxygen Concentration - - Weight 82.1 kg (181 lb) 05/25/2024 3:46 PM CDT Height 160 cm (5' 3 ) 05/25/2024 3:46 PM CDT Body Mass Index 32.06 05/25/2024 3:46 PM CDT Plan of Treatment Health Maintenance Due Date Last Done Comments Cervical Cancer Screening 1959 Osteoporosis Screening-Bone Density Scan 1959 Hepatitis B Screening 1977 Pneumococcal vaccine 65+ (1 of 1 - PCV) 2009 Zoster Vaccine (1 of 2) 2009 Colon Cancer Screening-Colonoscopy 07/11/2024 07/11/2019, 07/11/2019, 07/11/2019 Well Visit 65+ 2024 Depression Screening 05/25/2025 05/25/2024, 06/08/2023, 04/24/2022 Fall Risk Assessment 05/25/2025 05/25/2024, 06/08/20 Breast Cancer Screening-Mammogram 10/17/2025 10/17/2024, 06/30/2023, 06/23/2022, Additional history exists DTaP/Tdap/Td Vaccine (2 - Td or Tdap) 12/04/2026 12/04/2016 Colon Cancer Screening-CT Colonography Discontinued 07/11/2019, 07/11/2019 Colon Cancer Screening-DNA Stool Discontinued 07/11/20 19, 07/11/2019 Colon Cancer Screening-FIT Discontinued 07/11/2019, Colon Cancer Screening-Sigmoidoscopy Discontinued 07/11/2019, 07/11/2019 Hepatitis C Screening Completed 04/24/2022 Influenza Vaccine Discontinued Procedures Procedure Name Priority Date/Time Associated Diagnosis Comments SCREENING MAMMOGRAM BILATERAL W HIRAM Schedule Routine, Read Routine (OP Routine) 10/17/2024 9:46 AM PROPELLER MECHANIC Screening mammogram, encounter for HEPATITIS C ANTIBODY Routine 04/24/2022 4:00 PM CDT Encounter for hepatitis C screening test for low risk patient COLONOSCOPY Routine 07/11/2019 11:10 AM CDT from Last 3 Months or Most Recently Relevant to Health Maintenance Results * Screening Mammogram Bilateral W Hiram (10/17/2024 9:46 AM PROPELLER MECHANIC) Anatomical Region Laterality Modality Breast Bilateral Mammography Narrative 10/17/2024 10:13 AM PROPELLER MECHANIC Examination: Screening Mammogram Bilateral W Hiram: 10/17/24 Clinical: Screening mammogram, encounter for. Prior Study Comparisons: Comparison was made to the prior available relevant studies at the time of interpretation. Findings: Screening Mammogram Bilateral W Hiram Bilateral No significant masses, malignant type calcifications, skin thickening, nipple retraction, or significant lymphadenopathy is noted in either breast. Computer Aided Detection was utilized for the interpretation of this study. There are scattered areas of fibroglandular density. The patient will be notified of results by letter. Impression: BI-RADS ATLAS category (overall): 2 - Benign There is no mammographic evidence of malignancy. Routine Screening Mammogram in 1 Yr is recommended for bilateral Overall Assessment: 2 - Benign Self Screening Mammogram IMG MAMMO PROCEDURES Fi nal Result * Hepatitis C antibody (04/24/2022 4:00 PM CDT) Hep C Ab Nonreactive Nonreactive [facility] SNYDER Comment: Interpretive Data Nonreactive: Antibodies to HCV not detected. Does NOT exclude the possibility of recent exposure to HCV. Equivocal: Equivocal for HCV antibodies. Supplemental molecular testing will be automatically performed to determine infection status in accordance with current CDC screening recommendations. Reactive: Positive for HCV antibodies. This may represent current or past HCV infection. Supplemental molecular testing will be automatically performed to determine current infection status in accordance with current CDC screening recommendations. Interpretive data was last revised on 2020. Blood 04/24/2022 4:00 PM CDT 04/25/2022 10:58 AM CDT Juan R Sharp MD LAB MICROBIOLOGY - [place] [id number] [address] Department of Laboratories [place] [id number] * Colonoscopy (07/11/2019 11:10 AM CDT) Anatomical Region Laterality Modality Other us Sedrick Burden MD ENDOSCOPY PROCEDURES Final Re sult from Last 3 Months or Most Recently Relevant to Health Maintenance Insurance [employer] ACCESS CHOICE [place] CHOICE [facility] ACCESS CHOICE Care Teams Geoscience Professor Relationship Specialty Start Date End Date Juan R Sharp MD [address] [place] [address] PCP - General Family Medicine 04/15/22 Jeromy Rosales MD [address] [facility] [address], [place] [address] Referring Physician Dermatology 06/08/23 Alexis Vasquez MD [id number] [facility] [address] [facility] [address] [place], [place] [id number] Referring Physician Gastroenterology 05/25/24
--- OUTSIDE RECORDS SUMMARY | 2025-01-29 20:31 | XMS_ITS | Referral Summary ---
Author Organization [facility] Address [address] [place] [address] Care Team Providers Care Audit Senior Associate Name Role Phone Juan R Sharp MD Primary Care Provider Jeromy Rosales MD Unavailable Alexis Vasquez MD Unavailable [phone] Encounters Date Type Department Care Team Description 01/05/2025 Telephone [facility] Primary Care at [address] [phone] Juan R Sharp MD Medication Request 12/30/2024 Telephone [facility] Primary Care at [address] [address] Buffy Bacon MA from Last 3 Months Allergies No known active allergies Medications metroNIDAZOLE [...] by mouth daily Active cholecalciferol (VITAMIN D-3) 25277 unit capsule Take 1 capsule (10,000 Units [...] CDT): As above GERD (gastroesophageal reflux disease) Immunizations Immunization Administration Dates Next Due Influenza, Unspecified 06/08/2023(Deferr ed: Patient Refused),11/02/2022(Deferred: Patient Refused),11/02/2021(Deferred: Patient Refused),11/02/2020(Deferred: Patient Refused) Tdap 12/04/2016 Social History Tobacco Use Types Packs/Day Years Used Date Smoking Tobacco: Never Passive Smoke Exposure: Never Smokeless Tobacco: Never PHQ-2 Answer Date Recorded PHQ-2 Total Score (If total score is 3 or more points, staff should administer the PHQ-9) 0 05/25/2024 Comments No Sex and Gender Information Value Date Recorded Sex Assigned at Not on file Legal Sex 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 Gender Identity Not on file Sexual Orientation Not on file Last Filed Vital Signs Vital Sign Reading [...] 05/25/2024 3:46 PM CDT Plan of Treatment Not on file Procedures Procedure Name Priority Date/Time Associated Diagnosis Comments SCREENING MAMMOGRAM BILATERAL W HIRAM Schedule Routine, Read Routine (OP Routine) 10/17/2024 9:46 AM TRANSFER CAR OPERATOR DRIER Screening mammogram, encounter for HEPATITIS C ANTIBODY Routine 04/24/2022 4:00 PM CDT Encounter for hepatitis C screening test for low risk patient COLONOSCOPY Routine 07/11/2019 11:10 AM CDT from Last 3 Months or Most Recently Relevant to Health Maintenance Results * Screening Mammogram Bilateral W Hiram (10/17/2024 9:46 AM TRANSFER CAR OPERATOR DRIER) Anatomical Region Laterality Modality Breast Bilateral Mammography Narrative 10/17/2024 10:13 AM TRANSFER CAR OPERATOR DRIER Examination: Screening Mammogram Bilateral W Hiram: 10/17/24 [...] for bilateral Overall Assessment: 2 - Benign us Self Screening Mammogram IMG MAMMO PROCEDURES Fi [...] 4:00 PM CDT 04/25/2022 10:58 AM CDT us Juan R Sharp MD LAB MICROBIOLOGY - GENERAL ORDERABLES Final Result [place] [id number] [address] [place] [address] * Colonoscopy (07/11/2019 11:10 AM CDT) Anatomical Region Laterality Modality Other us Sedrick Burden MD ENDOSCOPY PROCEDURES Final Re sult from Last 3 Months or Most Recently Relevant to Health Maintenance Insurance [employer] ACCESS CHOICE PhoneAndPhone ACCESS CHOICE [facility] ACCESS CHOICE Care Teams Audit Senior Associate Relationship Specialty Start Date End Date Juan R Sharp MD [address] [place] [address] PCP - General Family Medicine 04/15/22 Jeromy Rosales MD [address] [facility] [address], [place] [address] Referring Physician Dermatology 06/08/23 Alexis Vasquez MD [address] [facility] [address] [facility] [address] [place] [address] Referring Physician Gastroenterology 05/25/24
--- OUTSIDE RECORDS SUMMARY | 2025-01-29 20:31 | XMS_ITS | Clinical Summary ---
Author Organization [facility] Address [facility] [place] [address] Care Team Providers Care Solar Photovoltaic Designer Name Role Phone Juan R Sharp MD Primary Care Provider [phone] Medications metoprolol succinate ER 50 MG 24 hr tabletIndications :Benign essential HTN Take 1 tablet (50 mg total) by mouth 2 (two) times a day. 60 tablet 1 Active METOPROLOL SUCCINATE ER 25 MG 24 hr tabletIndications :Benign essential HTN TAKE 1 TABLET (25 MG TOTAL) BY MOUTH DAILY. 30 tablet 1 Active SIMVASTATIN 20 MG tabletIndications :Hyperlipidemia TAKE ONE TABLET BY MOUTH DAILY 30 tablet 1 Active AMLODIPINE 10 MG tabletIndications :Primary hypertension TAKE ONE TABLET BY MOUTH DAILY 30 tablet 1 Active ESOMEPRAZOLE 40 MG capsuleIndication s:GERD (gastroesophageal reflux disease) TAKE ONE CAPSULE BY MOUTH DAILY 30 capsule 3 2 Active FUROSEMIDE 20 MG tabletIndications :Water retention TAKE ONE TABLET BY MOUTH DAILY NEEDED 30 tablet 2 Active Social History Tobacco Use Types Packs/Day Years Used Date Smoking Tobacco: Never Assessed Comments Unknown Sex and Gender Information Value Date Recorded Sex Assigned at Not on file Legal Sex Female 7:38 PM CDT Gender Identity Not on file Sexual Orientation Not on file Plan of Treatment Health Maintenance Due Date Last Done Comments Colorectal Cancer Screening Colonoscopy (10 Years) 1959 Hepatitis C 1977 Zoster Vaccines (1 of 2) 2009 Mammogram Screening 06/20/2022 06/20/2020 COVID-19 Vaccine (2023-2 5 season) 2024 Dexa Scan (General) 2024 Pneumococcal Vaccine: 65+ Ye ars (1 of 1 - PCV) 2024 DTaP, Tdap and Td Vaccines ( 2 - Td or Tdap) 12/04/2026 12/04/2016 RSV Immunization or 60+ Years (1 - 1-dose 75+ series) 2034 Meningococcal B Vaccine Aged Out No l onger eligible based on patient's age to complete this topic Meningococcal Vaccine Aged Out No jacinto rosi eligible based on patient's age to complete this topic Pneumococcal Vaccine: Pediat rics (0 to 5 Years) and At-Risk Patients (6 to 64 Years) Aged Out No longer eligi ble based on patient's age to complete this topic RSV Immunizations Under 20 Months Aged Out No longer eligible based on patient's age to complete this topic Procedures Procedure Name Priority Date/Time Associated Diagnosis Comments MAMMOGRAM GENERIC (SCAN ORDER) 06/20/2020 from Last 3 Months or Most Recently Relevant to Health Maintenance Results * MAMMOGRAM GENERIC (06/20/2020) Anatomical Region Laterality Modality Other 06/20/2020 Narrative 06/20/2020 Ordered by an unspecified provider. us Documents Scanned SCANNING Final Result from Last 3 Months or Most Recently Relevant to Health Maintenance Care Teams Solar Photovoltaic Designer Relationship Specialty Start Date End Date Juan R Sharp MD [address] [place] [address] [address] [place] [address] PCP - General FAMILY PRACTICE 12/09/21
--- NOTE | 2025-01-29 20:45 | PC.NURSE ---
Called Sharlene in lab to let her know that pt has gone to CT. Asked to come draw pt's labs in 10 mins. (2055)
[2025-01-29 20:48] LABS: Add Urine Microscopic? NO; Appearance Urine Clear (Clear); Bilirubin Urine Negative (Negative); Blood Urine Negative (Negative); Color Urine Light Yellow (Yellow); Glucose Urine UA Negative (Negative); Ketones Urine Trace (Negative); Leukocyte Esterase Ur Negative LEU/UL (Negative); Nitrate Urine Negative (Negative); Protein Urine Negative (Negative); Urobilinogen Urine 0.2 mg/dL (0.2-1.0); pH Urine 7.5 (5.0-8.0)
[2025-01-29] MEDS: ONDANSETRON HCL ODT 4 MG TABLET PO (21:00)
[2025-01-29] MEDS: KETOROLAC (*BKC) 60 MG/2 ML VIAL IM (21:00)
--- NOTE | 2025-01-29 21:05 | PC.NURSE ---
Called Sharlene in lab to come draw pt's labs. 2nd call
[2025-01-29 21:15] LABS: Basophils Absolute Auto 0.04 K/mm3 (0.00-0.10); Basophils Percent Auto 0.6 % (0.0-1.0); Eosinophils Absolute Auto 0.09 K/mm3 (0.02-0.50); Eosinophils Percent Auto 1.2 % (1.0-6.0); Hematocrit 40.2 % (35.0-42.0); Hemoglobin 13.8 g/dL (11.7-13.8); Immature Granulocyte Absolute 0.02 K/mm3 (0.00-0.00); Immature Granulocyte Percent A 0.3 % (0.0-0.0); Lymphocytes Absolute Auto 2.11 K/mm3 (1.10-4.50); Lymphocytes Percent Auto 29.2 % (18.0-42.0); Mean Corpuscular HGB Conc 34.3 g/dL (32-36); Mean Corpuscular Hemoglobin 31.5 pg (27.0-31.0); Mean Corpuscular Volume 91.8 fL (78.0-102.0); Mean Platelet Volume 9.8 fl (9.2-11.8); Monocytes Absolute Auto 0.56 K/mm3 (0.10-0.90); Monocytes Percent Auto 7.8 % (2.0-11.0); Neutrophils Percent Auto 60.9 % (50.0-70.0); Platelet Count Result 211 K/mm3 (150-420); Red Blood Count 4.38 M/mm3 (4.20-5.40); Red Cell Distribution Width 12.3 % (11.6-14.4); White Blood Count 7.2 K/mm3 (4.8-10.8)
[2025-01-29 21:33] LABS: INR 0.9; Partial Thromboplastin Time 29.1 Sec (23.9-30.70); Prothrombin Time 10.4 Seconds (9.50-12.1)
[2025-01-29 21:34] LABS: Alanine Aminotransferase 44 U/L (14-59); Albumin Level 4.3 g/dL (3.4-5.0); Alkaline Phosphatase 97 U/L (46-116); Anion Gap 11 mmol/L (4-12); Aspartate Amino Transferase 30 U/L (15-37); Bilirubin,Total 1.2 mg/dL (0.00-1.00); Blood Urea Nitrogen 9 mg/dL (7-18); Calcium 8.8 mg/dL (8.5-10.1); Carbon Dioxide 30 mmol/L (21-32); Chloride 81 mmol/L (98-108); Estimated CRCL calculation 88 ml/min; Estimated Glomerular Filt Rate > 60; Glucose 130 mg/dL (70-99); Lipase 39 U/L (16-77); Osmolality Calculated 254 mOsm/kg (285-295); Potassium 2.6 mmol/L (3.5-5.1); Sodium 122 mmol/L (136-145); Total Protein 8.1 g/dL (6.4-8.2)
[2025-01-29 21:37] LABS: Lactic Acid Reflex 1.1 mmol/L (0.4-2.0)
--- NOTE | 2025-01-29 22:00 | ECG_ITS ---
Test Date: 2025-01-29 22:22:25 Measurements Intervals [place] Rate: 82 P: 66 [place]: 203 QRS: 14 QRSD: 102 T: 43 QT: 388 QTc: 455 Interpretive Statements SINUS RHYTHM POSSIBLE LEFT ATRIAL ENLARGEMENT [-0.1mV P-WAVE IN V1/V2] ABNORMAL ECG No previous ECG available for comparison Electronically Signed On 01-30-2025 06:54:41 CDT by Soham Muse M.D.
[2025-01-29] MEDS: POTASSIUM CHLORIDE 20 MEQ ER TABLET PO (22:22)
[2025-01-29] MEDS: KCL 20 MEQ/SW 100 ML 100 ML 50 MEQ IVPB (22:22)
[2025-01-29] MEDS: diazePAM (*CRX) 5 MG TABLET PO (22:45)
[2025-01-29 22:58] LABS: Troponin I 7.4 ng/L (0.00-60.4)
[2025-01-29 23:05] VITALS: BMI 32.2
[2025-01-29 23:09] LABS: Magnesium 0.9 mg/dL (1.8-2.4)
--- NOTE | 2025-01-29 23:35 | ADMGEN ---
This patient, Olga Baker, was admitted to 2nd Floor Room 202-2. Patient/family oriented to hospital policies and general routines including ID bracelet, bed and alarms, pain management, procedures, bathroom and other care routines, personal items, smoking policy, room service/diet, and visiting hours. Information on how to activate the Rapid Response Team has been discussed. Patient/Family are encouraged to report perceived risks to care and to ask questions if they do not understand what they are told or what they should do.
[2025-01-30] VITALS: BP 142/83; PULSE 62; PULSE 70; RESP 16; TEMP 36.1; O2SAT 97
[2025-01-30] MEDS: MAGNESIUM SULF 2 GM/WATER 50ML 2 GM/50 ML BAG IVPB (00:21)
[2025-01-30] MEDS: SODIUM CHLORIDE 0.9% IV 1,000 ML 150 ML IV CONT (02:08)
[2025-01-30 04:00] VITALS: BP 127/76; PULSE 50; PULSE 76; RESP 16; TEMP 36.4; O2SAT 95
[2025-01-30 05:33] LABS: Basophils Absolute Auto 0.04 K/mm3 (0.00-0.10); Basophils Percent Auto 0.6 % (0.0-1.0); Eosinophils Absolute Auto 0.13 K/mm3 (0.02-0.50); Eosinophils Percent Auto 2.1 % (1.0-6.0); Hematocrit 40.2 % (35.0-42.0); Immature Granulocyte Absolute 0.02 K/mm3 (0.00-0.00); Immature Granulocyte Percent A 0.3 % (0.0-0.0); Lymphocytes Absolute Auto 2.09 K/mm3 (1.10-4.50); Lymphocytes Percent Auto 33.5 % (18.0-42.0); Mean Corpuscular HGB Conc 32.3 g/dL (32-36); Mean Corpuscular Hemoglobin 32.4 pg (27.0-31.0); Mean Corpuscular Volume 100.2 fL (78.0-102.0); Mean Platelet Volume 9.9 fl (9.2-11.8); Monocytes Absolute Auto 0.75 K/mm3 (0.10-0.90); Neutrophils Percent Auto 51.5 % (50.0-70.0); Platelet Count Result 222 K/mm3 (150-420); Red Blood Count 4.01 M/mm3 (4.20-5.40); Red Cell Distribution Width 12.7 % (11.6-14.4); White Blood Count 6.2 K/mm3 (4.8-10.8)
[2025-01-30 05:51] LABS: Alanine Aminotransferase 38 U/L (14-59); Albumin Level 3.6 g/dL (3.4-5.0); Alkaline Phosphatase 84 U/L (46-116); Anion Gap 10 mmol/L (4-12); Aspartate Amino Transferase 28 U/L (15-37); Bilirubin,Total 1.2 mg/dL (0.00-1.00); Blood Urea Nitrogen 6 mg/dL (7-18); Calcium 8.6 mg/dL (8.5-10.1); Carbon Dioxide 26 mmol/L (21-32); Chloride 94 mmol/L (98-108); Estimated CRCL calculation 102 ml/min; Estimated Glomerular Filt Rate > 60; Glucose 100 mg/dL (70-99); Magnesium 2.1 mg/dL (1.8-2.4); Osmolality Calculated 267 mOsm/kg (285-295); Potassium 3.3 mmol/L (3.5-5.1); Sodium 130 mmol/L (136-145); Total Protein 6.6 g/dL (6.4-8.2)
[2025-01-30 07:00] VITALS: PULSE 62
--- OUTSIDE RECORDS SUMMARY | 2025-01-30 07:28 | XMS_ITS | Referral Summary ---
Author Organization [facility] Address [address] [place] [address] Care Team Providers Care Coarse Wire Drawer Name Role Phone Juan R Sharp MD Primary Care Provider Jeromy Rosales MD Unavailable Alexis Vasquez MD Unavailable [phone] Encounters Date Type Department Care Team Description 01/05/[address] [facility] Medical Group Primary Care at [address] [address] Juan R Sharp MD Medication Request 12/30/[address] [facility] Medical [facility] Primary Care at [address] [address] Buffy Bacon MA from Last [...] by mouth daily Active cholecalciferol (VITAMIN D-3) 96270 unit capsule Take 1 capsule (10,000 Units [...] on file Legal Sex Female 2:34 AM WARP TESTER Gender Identity Not on file Sexual Orientation [...] Read Routine (OP Routine) 10/17/2024 9:46 AM WARP TESTER Screening mammogram, encounter for HEPATITIS C ANTIBODY Routine 04/24/2022 4:00 PM CDT Encounter for hepatitis C screening test for low risk patient COLONOSCOPY Routine 07/11/2019 11:10 AM CDT from Last 3 Months or Most Recently Relevant to Health Maintenance Results * Screening Mammogram Bilateral W Hiram (10/17/2024 9:46 AM WARP TESTER) Anatomical Region Laterality Modality Breast Bilateral Mammography Narrative 10/17/2024 10:13 AM WARP TESTER Examination: Screening Mammogram Bilateral W Hiram: 10/17/24 [...] MICROBIOLOGY - GENERAL ORDERABLES Final Result [address] [id number] Department [place] [address] * Colonoscopy (07/11/2019 11:10 AM CDT) Anatomical Region Laterality Modality Other us eSdrick Burden MD ENDOSCOPY PROCEDURES Final Re sult from Last 3 Months or Most Recently Relevant to Health Maintenance Insurance [employer] ACC[employer] CHOICE [employer] [facility] ACCESS CHOICE Care Teams Coarse Wire Drawer Relationship Specialty Start Date End Date Juan R Sharp MD [address] [place] [address] PCP - General Family Medicine 04/15/22 Jeromy Rosales MD [address] [facility] [address], [place] [address] Referring Physician Dermatology 06/08/23 Alexis Vasquez MD [address] [facility] [address] [facility] [address] [place] [address] Referring Physician Gastroenterology 05/25/24
--- OUTSIDE RECORDS SUMMARY | 2025-01-30 07:28 | XMS_ITS | Clinical Summary ---
Author Organization [facility] Address [facility], [id number] [place] [address] Care Team Providers Care Congregational Care Pastor Name Role Phone Juan R Sharp MD Primary Care Provider [phone] Medications metoprolol succinate ER 50 MG 24 [...] Recently Relevant to Health Maintenance Care Teams Congregational Care Pastor Relationship Specialty Start Date End Date Juan R Sharp MD [address] [place] [place] [address] [address] [place] [address] PCP - General FAMILY PRACTICE 12/09/21
--- OUTSIDE RECORDS SUMMARY | 2025-01-30 07:28 | XMS_ITS | Clinical Summary ---
Author Organization [facility] Address [address] [place] [address] Care Team Providers Care Skidder Name Role Phone Juan R Sharp MD Primary Care Provider Jeromy Rosales MD Unavailable [phone] Alexis Vasquez MD Unavailable [phone] Allergies No known active allergies Medications [...] by mouth daily Active cholecalciferol (VITAMIN D-3) 68291 unit capsule Take 1 capsule (10,000 Units [...] Department Care Team Description 01/05/[address] [facility] Medical Group Primary Care at [address] [address] Juan R Sharp MD Medication Request 12/30/2024 Telephone [facility] Primary Care at [address] [address] Buffy Bacon MA from Last [...] on file Legal Sex Female 2:34 AM CENTRAL STERILE TECH Gender Identity Not on file Sexual Orientation [...] Read Routine (OP Routine) 10/17/2024 9:46 AM CENTRAL STERILE TECH Screening mammogram, encounter for HEPATITIS C ANTIBODY Routine 04/24/2022 4:00 PM CDT Encounter for hepatitis C screening test for low risk patient COLONOSCOPY Routine 07/11/2019 11:10 AM CDT from Last 3 Months or Most Recently Relevant to Health Maintenance Results * Screening Mammogram Bilateral W Hiram (10/17/2024 9:46 AM CENTRAL STERILE TECH) Anatomical Region Laterality Modality Breast Bilateral Mammography Narrative 10/17/2024 10:13 AM CENTRAL STERILE TECH Examination: Screening Mammogram Bilateral W Hiram: 10/17/24 [...] - GENERAL [place] [id number] [address] Department of Laboratories [place] [id number] * Colonoscopy (07/11/2019 11:10 AM CDT) Anatomical Region Laterality Modality Other us Sedrick Burden MD ENDOSCOPY PROCEDURES Final Re sult from Last 3 Months or Most Recently Relevant to Health Maintenance Insurance [employer] ACCESS CHOICE [employer] CHOICE [facility] ACCESS CHOICE Care Teams Skidder Relationship Specialty Start Date End Date Juan R Sharp MD [address] [place] [address] PCP - General Family Medicine 04/15/22 Jeromy Rosales MD [address] [facility] [address], [place] [address] Referring Physician Dermatology 06/08/23 Alexis Vasquez MD [address] [facility] [address] [facility] [address] [place], [place] [id number] Referring Physician Gastroenterology 05/25/24
[2025-01-30 08:15] VITALS: BP 130/74; PULSE 72; RESP 16; TEMP 36; O2SAT 96
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
[2025-01-30] MEDS: POTASSIUM CHLORIDE 20 MEQ PACKET (FOR LIQUID) 40 MEQ PO (09:15)
--- NOTE | 2025-01-30 11:10 | PC.NURSE ---
Pt A&Ox3, discharged to home with . Pt assisted to 's truck via W/C.
== END 2025-01-30 11:10 | disposition home or self-care (01) ==
LOC: CHSED 22:07 → CHS2ND 01-30 07:25
PROVIDERS: Admitting Provider Internal Medicine; Emergency Provider Emergency Medicine; PCP Family Medicine; Visit Provider Internal Medicine
DX: S39.012A Strain of muscle, fascia and tendon of lower back, initial encounter (principal); M62.830 Muscle spasm of back; E87.1 Hypo-osmolality and hyponatremia; E87.6 Hypokalemia; E83.42 Hypomagnesemia; I10 Essential (primary) hypertension; E78.5 Hyperlipidemia, unspecified; E53.8 Deficiency of other specified B group vitamins; K21.9 Gastro-esophageal reflux disease without esophagitis; F41.1 Generalized anxiety disorder; F32.A Depression, unspecified; Z79.899 Other long term (current) drug therapy
CPT/HCPCS: 36415; 74176; 80053; 81003; 83605; 83690; 83735; 84484; 85025; 85610; 85730; 93005; 96361; 96365; 96366; 96367; 96372; 96375; 99285; A9270; G0378; J1885; J3475; J3480; J7030